=== PATIENT | male | born 1955 | race Caucasian/White ===

== ENCOUNTER 2020-07-23 02:53 | Emergency (ER) | payer MEDICARE, SELFPAY ==
[2020-07-23] VITALS (44 sets, daily range): BP systolic 108–153; BP diastolic 56–109; PULSE 48–86; RESP 9–22; TEMP 36.6; O2SAT 90–100
--- NOTE | ~2020-07-23 | XR_ITS ---
EXAMINATION: XR chest 1V portable INDICATION: Right-sided facial droop TECHNIQUE: Portable AP chest at 0330 hours COMPARISON: 03/31/2018 FINDINGS: Cardiomegaly is noted. Minimal interstitial and airspace opacities are noted. There is no p leural effusion or pneumothorax. There has been interval insertion of a neurostimulator leads which p roject over the lower thoracic spine. IMPRESSION: 1. Diffuse lung disease, consistent with pneumonia and/or pulmonary edema. 2. Cardiomegaly. Reviewed, dictated and finalized at location A. INIST BRAKE
--- NOTE | ~2020-07-23 | CT_ITS ---
EXAMINATION: CT brain wo con INDICATION: Headache COMPARISON: None TECHNIQUE: Standard unenhanced head CT. The dose-length product (DLP) was 605.33 mGy-cm. The mA was a djusted according to patient size. Iterative reconstruction technique was employed. FINDINGS: There are old infarcts in the occipital lobes, right greater than left. There is no intracr anial hemorrhage, acute infarction, or abnormal mass lesion. The ventricles are normal. There is no a bnormal mass effect or midline shift. The mcnulty-white matter differentiation is normal. The basal cist erns are patent. The orbits are normal. The paranasal sinuses, mastoids and calvarium are normal. IMPRESSION: 1. 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 Reviewed, dictated and finalized at location A. O COUNTER MOLDER
--- NOTE | 2020-07-23 02:54 | ECG_ITS ---
Measurements Intervals [place] Rate: 53 P: 8 NC: 130 QRS: 35 QRSD: 86 T: 60 QT: 411 QTc: 387 Interpretive Statements SINUS BRADYCARDIA NONSPECIFIC T-WAVE ABNORMALITY- ANTERIOR LEADS BASELINE ARTIFACT- I, II, III, AVR, AVL, AVF, V1-V3 BORDERLINE ECG Electronically Signed On 07-23-2020 8:50:10 EXTERIOR DESIGNER by Braulio Hnery D.O.
--- NOTE | 2020-07-23 03:09 | ED.NEUROSD ---
HPI - Neuro Symptoms/Deficit General Chief Complaint: Suspected CVA <Mikayla Hahn MD - Last Filed: 07/23/20 21:09> Stated Complaint: cva <Mikayla Hahn MD - Last Filed: 07/23/20 21:09> Time Seen by Provider: 07/23/20 02:56 <Mikayla Hahn MD - Last Filed: 07/23/20 21:09> Source: patient and EMS <Mikayla Hahn MD - Last Filed: 07/23/20 21:09> Mode of arrival: EMS <Mikayla Hahn MD - Last Filed: 07/23/20 21:09> History of Present Illness HPI Narrative: This patient is a 64 year old male with history of Diabetes mellitus, hypertension, SD, s/p stent who presents via EMS for evaluation of right side weakness. PAtient reports he noticed right arm and right leg weakness around 1 am this morning. He is unable to move is right arm and his right leg is weak. He reports some numbness to his right side. He denies history of a stroke in the past. EMs reports patient had recent back surgery. On evaluation of his medical records, he had lumbar fixation procedure on 05/17/2020. During that procedure he suffered a postoperative SD. He developed a surgical wound infection of his back incision. He has Incision and drainage performed by Dr. Belle on 07/01/20 and he had wound vac placed. <Mikayla Hahn MD - Last Filed: 07/23/20 21:09> Related Data Home Medications: Home Medications Medication Instructions Recorded Confirmed calcitriol 0.25 mcg PO DAILY 07/01/20 07/01/20 carvedilol 12.5 mg PO BID 07/01/20 07/01/20 clopidogrel 75 mg PO DAILY 07/01/20 07/01/20 desoximetasone 1 applic TOPICAL BID 07/01/20 07/01/20 diazepam 5 mg PO TID PRN 07/01/20 07/01/20 ergocalciferol (vitamin D2) 1,250 mcg PO WEEKLY 07/01/20 07/01/20 [Vitamin D2] gabapentin 600 mg PO BID 07/01/20 07/01/20 glipizide 20 mg PO DAILY 07/01/20 07/01/20 lisinopril 20 mg PO BID 07/01/20 07/01/20 metformin 1,000 mg PO BID 07/01/20 07/01/20 metoprolol tartrate 50 mg PO DAILY 07/01/20 07/01/20 nitroglycerin 0.4 mg SUBLINGUAL Q5-15M PRN 07/01/20 07/01/20 oxycodone-acetaminophen 1 tablet PO Q6H PRN 07/01/20 07/01/20 quinapril 40 mg PO DAILY 07/01/20 07/01/20 ropinirole 1 mg PO DAILY 07/01/20 07/01/20 simvastatin 80 mg PO DAILY 07/01/20 07/01/20 tizanidine 2 mg PO HS 07/01/20 07/01/20 aspirin [Aspirin Low Dose] 81 mg PO DAILY 07/23/20 insulin degludec [Tresiba U-100 26 unit SUBCUT DAILY 07/23/20 Insulin] morphine 30 mg PO BID 07/23/20 <Mikayla Hahn MD - Last Filed: 07/23/20 21:09> Allergies/Adverse Reactions: Allergies Allergy/AdvReac Type Severity Reaction Status Date / Time No Known Allergies Allergy Verified 07/23/20 03:39 <Mikayla Hahn MD - Last Filed: 07/23/20 21:09> Review of Systems Review of Systems: All systems reviewed & are unremarkable except as noted in HPI and below <Mikayla Hahn MD - Last Filed: 07/23/20 21:09> Constitutional: Constitutional: Denies chills and Denies fever(s) <Mikayla Hahn MD - Last Filed: 07/23/20 21:09> Eyes: Eyes: Reports no additional eye complaints <Mikayla Hahn MD - Last Filed: 07/23/20 21:09> Cardiovascular: Cardiovascular: Denies chest pain <Mikayla Hahn MD - Last Filed: 07/23/20 21:09> Respiratory: Respiratory: Denies cough and Denies dyspnea <Mikayla Hahn MD - Last Filed: 07/23/20 21:09> Gastrointestinal: Gastrointestinal: Denies abdominal pain, Denies nausea and Denies vomiting <Mikayla Hahn MD - Last Filed: 07/23/20 21:09> Neurologic: Denies headache(s) and Reports focal weakness (right arm) <Mikayla Hahn MD - Last Filed: 07/23/20 21:09> [facility] Past Medical History Medical History: Medical History (Updated 07/23/20 @ 10:45 by Delia Lizama MD) CAD (coronary artery disease) Diabetes type 2, controlled Essential (primary) hypertension <Mikayla Hahn MD - Last Filed: 07/23/20 21:09> Surgical History Surgical History: Surgical History (Updated 07/01/20
[2020-07-23 03:23] LABS: Glucose Point of Care 27 (65-105)
[2020-07-23 03:23] LABS: Glucose Point of Care 27 (65-105)
[2020-07-23] MEDS: DEXTROSE 50% 25 GM/50 ML SYRINGE ×2 (03:25→06:34)
--- NOTE | 2020-07-23 03:35 | PC.NURSE ---
After given amp of D50 patient stated he needed to use the bathroom. Upon entering the room patient states and demonstrated he was able to use his right hand and arm and leg. ERP notified.
[2020-07-23 04:15] LABS: Add Urine Microscopic? NO; Appearance Urine Clear (Clear); Bilirubin Urine Negative (Negative); Blood Urine Negative (Negative); Color Urine Yellow (Yellow); Glucose Urine UA Negative (Negative); Ketones Urine Negative (Negative); Leukocyte Esterase Ur Negative LEU/UL (Negative); Nitrate Urine Negative (Negative); Protein Urine Negative (Negative); Specific Grav Ur 1.017 (1.001-1.035); Urobilinogen Urine Negative mg/dL (<2.0)
[2020-07-23 04:16] LABS: Basophils Percent Auto 0.3 % (0.2-1.2); Eosinophils Percent Auto 0.5 % (0-4.4); Hematocrit 26.8 % (42.0-52.0); Hemoglobin 8.6 g/dL (14.0-18.0); Immature Granulocyte Absolute 0.02 K/mm3 (0.00-0.031); Immature Granulocyte Percent A 0.3 % (0-0.5); Lymphocytes Absolute Auto 1.06 K/mm3 (0.9-3.2); Lymphocytes Percent Auto 13.8 % (18.3-44.2); Mean Corpuscular HGB Conc 32.1 g/dl (32-36); Mean Corpuscular Hemoglobin 28.2 pg (26-34); Mean Corpuscular Volume 87.9 fl (80-100); Mean Platelet Volume 10.6 fl (7.4-10.4); Monocytes Absolute Auto 0.3 K/mm3 (0.1-0.6); Monocytes Percent Auto 4.3 % (2.6-8.5); Neutrophils Absolute Auto 6.2 K/mm3 (1.3-6.7); Neutrophils Percent Auto 80.8 % (45.5-73.1); Platelet Count Result 212 k/mm3 (150-375); Red Blood Count 3.05 M/mm3 (4.6-6.20); Red Cell Distribution Width 14.6 % (11.5-14.5); White Blood Count 7.7 K/mm3 (4.5-10.0)
[2020-07-23 04:26] LABS: Partial Thromboplastin Time 29.9 SECONDS (22.3-36.8); Prothrombin Time 13.9 Seconds (11.1-14.7)
[2020-07-23 04:28] LABS: Anion Gap 7 mmol/L (8-16); Blood Urea Nitrogen 27 mg/dL (9-20); Calcium 8.9 mg/dL (8.4-10.2); Carbon Dioxide 28 mmol/L (22-30); Chloride 103 mmol/L (98-107); Estimated Glomerular Filt Rate > 60; Glucose 154 mg/dL (75-110); Potassium 4.7 mmol/L (3.4-5.0); Sodium 138 mmol/L (137-145)
[2020-07-23 04:40] LABS: Troponin I < 0.012 ng/mL (0.000-0.034)
--- NOTE | 2020-07-23 05:03 | PC.NURSE ---
Patient's bedside glucose is 81.
[2020-07-23 05:04] LABS: Glucose Point of Care 81 (65-105)
[2020-07-23 06:22] LABS: Glucose Point of Care 37 (65-105)
--- NOTE | 2020-07-23 06:22 | PC.NURSE ---
Patient's bedside glucose is 37. ERP notified.
--- NOTE | 2020-07-23 07:34 | PC.NURSE ---
DIETARY CONTACTED FOR A BREAKFAST TRAY AT THIS TIME.
[2020-07-23 08:26] LABS: Glucose Point of Care 125 (65-105)
[2020-07-23] MEDS: MORPHINE SULFATE (*CRX) 30 MG TABCR PO (08:34)
[2020-07-23 08:35] LABS: Glucose Point of Care 131 (65-105)
--- NOTE | 2020-07-23 09:15 | PC.NURSE ---
SPOKE WITH PT SON FOR UPDATE ON PT STATUS, NO FURTHER QUESTIONS.
[2020-07-23 09:25] LABS: Glucose Point of Care 78 (65-105)
[2020-07-23 10:19] LABS: Glucose Point of Care 109 (65-105)
== END 2020-07-23 10:57 | disposition home or self-care (01) ==
PROVIDERS: General Practice; Emergency Provider Emergency Medicine; PCP Family Medicine
DX: E11.649 Type 2 diabetes mellitus with hypoglycemia without coma (principal); I10 Essential (primary) hypertension; I25.2 Old myocardial infarction; I25.10 Atherosclerotic heart disease of native coronary artery without angina pectoris; Z95.5 Presence of coronary angioplasty implant and graft; Z79.82 Long term (current) use of aspirin; Z79.4 Long term (current) use of insulin; Z98.1 Arthrodesis status; R00.1 Bradycardia, unspecified; R94.31 Abnormal electrocardiogram [ECG] [EKG]; I51.7 Cardiomegaly; J98.4 Other disorders of lung
CPT/HCPCS: 36415; 70450; 71045; 80048; 81003; 82948; 84484; 85025; 85610; 85730; 93005; 96374; 96376; 99284; A9270

== ENCOUNTER 2020-09-26 07:51 | Outpatient (RCR) | payer MEDICARE, SELFPAY ==
[2020-07-01 11:30] VITALS: BMI 25.8
--- NOTE | 2020-07-01 16:25 | PM.CNGS ---
Assessment and Plan Assessment and plan (1) Superficial incisional surgical site infection: Code(s): T81.41XA - Infection following a procedure, superficial incisional surgical site, initial encounter Status: Acute Assessment and Plan: The patient appears to have an abscess deep to his incision from his recent spinal surgery. There is a small wound opening draining purulence fluid. I discussed with the patient that this will need to be opened up further to allow for evacuation of the purulence fluid and proper wound care. Will proceed with incision and drainage of back abscess in the wound clinic under local anesthetic today. I discussed the procedure, risks, benefits, and alternatives with the patient. He will possibly be a candidate for wound VAC placement once the wound is opened up adequately and drained. He may not need to undergo systemic antibiotic treatment, but will ultimately leave this up to his spine surgeon as there is hardware deep to this area. Will make arrangements for patient to follow up in wound clinic for wound VAC placement once this is approved and will continue to follow patient in wound clinic until he is ultimately able to be released. (2) CAD (coronary artery disease): Qualifiers: Coronary Disease-Associated Artery/Lesion type: [place] artery [place] vs. transplanted heart: [place] heart Associated angina: without angina Qualified Code(s): I25.10 - Atherosclerotic heart disease of [place] coronary artery without angina pectoris Code(s): I25.10 - Atherosclerotic heart disease of [place] coronary artery without angina pectoris Status: Chronic (3) Diabetes type 2, controlled: Qualifiers: Diabetes mellitus detention insulin use: with terminal operations supervisor use Diabetes mellitus complication status: without complication Qualified Code(s): E11.9 - Type 2 diabetes mellitus without complications; Z79.4 - longterm (current) use of insulin Code(s): E11.9 - Type 2 diabetes mellitus without complications Status: Chronic (4) History of lumbar surgery: Code(s): Z98.890 - Other specified postprocedural states Status: Acute History of Present Illness Consult details Consult date: 07/01/20 Reason for consult: wound care Requesting physician: Adolfo,Moo Trujillo MD Narrative: This is a 64-year-old man who I am asked to see in wound clinic for further wound care. The patient has a wound of his lower back from a recent spinal surgery. He underwent lumbar fixation procedure on 05/17/2020. He suffered a postoperative MN and required cardiac catheterization with stent placement. He is currently wearing a life vest until following up with Cardiology. He began developing some wound healing complications to his back incision. He has a wound opening and the upper portion of the scar that has been draining purulence fluid. The wound was too small to pack any gauze in, but continues to stay open and draining. The patient is having tenderness around the area but denies any fevers or chills. He was having some numbness feeling in his legs and just underwent a follow-up MRI with his spine surgeon yesterday. Review of Systems Review of Systems: All systems reviewed & are unremarkable except as noted in HPI and below Constitutional: Constitutional: Denies chills, Denies fever(s), Denies headache(s) and Denies weight loss Eyes: Eyes: Denies change in vision ENT: Denies dizziness, Denies headache(s), Denies neck mass and Denies throat swelling Cardiovascular: Cardiovascular: Denies chest pain, Denies lightheadedness and Denies dyspnea Respiratory: Respiratory: Denies cough, Denies dyspnea and Denies wheezing Gastrointestinal: Gastrointestinal: Denies abdominal pain, Denies change in bowel habits, Denies nausea and Denies vomiting Genitourinary: Genitourinary: Denies hematuria and Denies dysuria Musculoskeletal: Musculoskeletal: Reports as per HPI Integumentary/Jayne
--- NOTE | 2020-07-01 16:44 | PM.PROC ---
Procedure Note - Detailed Date of procedure: 07/01/20 Pre-op diagnosis: Back abscess, superficial surgcial site infection Post-op diagnosis: same Procedure performed: Incision and drainage of superficial surgical site infection to lower back/back abscess Description of procedure: procedure, risks, benefits, and alternatives were discussed with the patient. Patient was placed prone on exam table. His back area was prepped and draped in sterile fashion using Betadine prep. 1% lidocaine with epinephrine was infiltrated locally around the skin on the open back wound. A 4 cm incision was made using a 15 blade scalpel directly over the old scar. The wound was opened up adequately and purulence fluid was expressed. The wound was inspected and no further loculations were noted. The wound was then packed with Aquacel Ag packing. Fluff gauze and tape was then applied. Anesthesia: local ( 1% lidocaine with epinephrine) Surgeon: Nasim Belle DO Nutritional Services Director: Nova Garzon RN Estimated blood loss (mL): 2 Packing: Yes (Aquacel Ag) Complications: No immediate complications Condition: stable Disposition: same day Findings: incision and drainage was made over the back wound. Wound was opened up to allow for sealant fluid to be fully evacuated. Wound dimensions measured 4 cm x 1 cm x 1.5 cm after I&D. Wound still tract about 4 cm inferior in the 6 o'clock location. Wound measurements were taken for plans for wound VAC.
--- NOTE | 2020-08-30 09:48 | P.OP_ITS ---
Procedure Note - Detailed Date of procedure: 08/30/20 Pre-op diagnosis: Back abscess, superficial surgcial site infection Post-op diagnosis: same Procedure performed: Incision and drainage of chronic back abscess and nonhealing wound Description of procedure: * Procedure as well as risks, benefits, and alternatives were discussed with the patient. Written consent was obtained and placed in chart prior to procedure. Patient was placed prone on exam table. His back area was prepped and draped in sterile fashion using Betadine prep. 1% lidocaine with epinephrine was infiltrated locally around the chronic open wound. A 15 blade scalpel was used to make an incision caudally on the open wound along where the chronic abscess was tracking. The incision was opened up approximately 2 in to allow for adequate drainage. There was minimal fibrinous debris that was evacuated from within the abscess cavity. No foreign bodies or other abnormalities were identified. Silver nitrate was applied to aid with hemostasis and for chemical debridement of the chronic granulation. Silver rope was then applied followed by 4 x 4 gauze and tape. Anesthesia: local (1% lidocaine with epinephrine) Surgeon: Nasim Belle DO Estimated blood loss (mL): 2 Packing: Yes (Aquacel Ag rope) Complications: No immediate complications Condition: stable Disposition: same day Findings: * This is a 64-year-old man who presents with a chronic nonhealing wound at a recent lumbar surgery site. He had developed an abscess that was incised and drained previously and wound VAC had been placed. The wound VAC had allowed the wound to close significantly, but there still remained a small 5 mm by 2 cm opening. There was still some tracking caudally and the wound would not completely close, therefore decision was made to repeat I and D over the tracking area. This was performed and some chronic fibrinous material was removed but no foreign body or deep tracking was identified.
== END 2020-09-29 23:59 | disposition home or self-care (01) ==
LOC: ANHWOC 07:51
PROVIDERS: PCP Family Medicine; Visit Provider Surgery
DX: T81.31XD Disruption of external operation (surgical) wound, not elsewhere classified, subsequent encounter (principal)
CPT/HCPCS: 11042; 97605; 99212; 99213; A9270; G0463; J3370

== ENCOUNTER 2020-12-12 07:19 | Outpatient (RCR) | payer OTHER, MEDICARE, SELFPAY ==
[2020-09-30 00:03] VITALS: BMI 25.8
== END 2020-12-19 08:21 | disposition home or self-care (01) ==
LOC: ANHWOC 07:19
PROVIDERS: PCP Family Medicine; Visit Provider Surgery
DX: T81.31XD Disruption of external operation (surgical) wound, not elsewhere classified, subsequent encounter (principal)
CPT/HCPCS: 99212; A9270; G0463

== ENCOUNTER 2020-12-22 08:05 | Outpatient (CLI) | payer MEDICARE, SELFPAY ==
--- NOTE | ~2020-12-22 | XR_ITS ---
EXAMINATION: XR shoulder RT min 2V EXAM DATE: 12/22/2020 08:37 INDICATION: No known recent injury provided at this time. Pain of the right shoulder. TECHNIQUE: The following right shoulder projections obtained: frontal projection with internal rotati on, frontal projection with external rotation, Grashey, and axillary (4+ views). Comparison is made t o prior examination from 06/14/2015. FINDINGS: No evidence of right shoulder rotator cuff calcific tendinosis. There is mild glenohumer al and acromioclavicular joint primary osteoarthritis. There are no acute fractures or dislocations i dentified. There is no subcutaneous gas. The soft tissue is unremarkable. There are no radiopaque foreign bodies. Spine stimulator leads. IMPRESSION: Mild right shoulder osteoarthritis. Reviewed, dictated and finalized at location A.
--- NOTE | ~2020-12-22 | XR_ITS ---
EXAMINATION: XR cervical spine 4-5V EXAM DATE: 12/22/2020 08:37 INDICATION: Cervicalgia. Right shoulder pain. TECHNIQUE: Cervical spine frontal, lateral, lateral swimmers, and open-mouth odontoid projections. C orrelation is made to cervical MRI 2007. FINDINGS: There is solid bone bridging C5-7, with the C5-6 fusion no new compared to 2007 MRI. Mild u pper lumbar disc disease. There is 2 mm anterolisthesis C4 on C5 on the flexion which normalizes on t he extension, with bulky facet arthropathy at that level. Less facet arthropathy at the other levels. Also some uncovertebral joint arthropathy causing some amount of neural foraminal stenosis mostly at C4-5. Lung apices unremarkable. The odontoid process is intact. The lateral masses of C1 line up wi th C2. Paraspinal soft tissue is unremarkable. IMPRESSION: 1. Osseous fusion C5-7. 2. C4-5 with minimal subluxation, advanced facet arthropathy. Reviewed, dictated and finalized at location A.
== END 2020-12-22 08:06 ==
PROVIDERS: PCP Family Medicine; Visit Provider Nurse Practitioner Family
DX: M19.011 Primary osteoarthritis, right shoulder (principal); Z98.1 Arthrodesis status
CPT/HCPCS: 72050; 73030

== ENCOUNTER 2025-05-18 09:59 | Outpatient (CLI) | payer MEDICARE, SELFPAY ==
--- OUTSIDE RECORDS SUMMARY | 2025-01-06 10:15 | XMS_ITS ---
Author Organization [facility] Office Address [address] [facility] [address] [place] [address] Care Team Providers Care Warehouse Shipping Clerk Name Role Phone Temo Adolfo Unavailable [phone] Encounters Encounter Location Date Provider Diagnosis [place] [facility] [address] [facility] [address] [place] [address] 01/06/2025 Adolfo Plascencia Plan Of Treatment Next Appt Details Provider Name:Adolfo Plascencia , 07/19/2025 01:00:00 PM, [address] [facility] [address], [place], [address], Progress Notes * HUY JAMESDOB:1955 (69 yo M)Acc No.[id number]:01/06/2025 Progress Notes Patient: HUY RICE Provider: Claude GRIFFITH MD, Jessica.Tammy.C.P, F.A.S.N. :1955 A ge:69 Y S ex:Male Date:01/06/2025 Address:[address] [place] [address] Subjective: * Chief Complaints: * * Medical History: Objective: * Vitals: Assessment: Plan: * Treatment: * Billing Information: * Visit Code: * Procedure Codes: * Electronic signature of Jeffrey Plascencia MD on 05/18/2025 at 11:20 AM CDT Sign off status: Pending * Provider: Claude GRIFFITH MD, Jessica.Tammy.C.P, F.A.S.N. Date: 01/06/2025 Generated for Printing/Faxing/eTransmitting on: 05/18/2025 11:20 AM CDT
--- OUTSIDE RECORDS SUMMARY | 2025-01-22 10:30 | XMS_ITS ---
Author Organization [facility] Address [address] [facility] [address] [place] [address] Care Team Providers Care Executive Wellness Programs Director Name Role Phone Adolfo Plascencia Unavailable [phone] Results Component Value Reference Range Notes ALBUMIN, RANDOM URINE W/CREA TININE (7831) (Not yet reviewed by provider) Interpretation: Performing Lab:ELLE Pockets [employer] Low-Dtwfiy48553 Jas Herring, PkloezRQ[address] Paulina Cramer MD Notes/Report: 0; 0; 0; 0; 0; 0; 0; 0; 0; 0; 0; 0; 0; 0 CREATININE, RANDOM URINE 54 20-320 mg/dL ALBUMIN, URINE 1.8 See Note: mg/dL Reference Range: Reference Range Not established ALBUMIN/CREATININE RATIO, RANDOM URINE 33 <30 mg/g creat The ADA defines abnormalities in albumin excretion as follows: Albuminuria Category Result (mg/g creatinine) Normal to Mildly increased <30 Moderately increased 30-299 Severely increased > OR = 300 The ADA recommends that at least two of three specimens collected within a 3-6 month period be abnormal before considering a patient to be within a diagnostic category. SODIUM WITH CREATININE, RAND OM URINE (5214) (Not yet reviewed by provider) Interpretation: Performing Lab:Puneet ALMEIDA-Yunnsq73061 Jas Herring, GmepauVK[address] Paulina Cramer MD Notes/Report: 0; 0; 0; 0; 0; 0; 0; 0; 0; 0; 0; 0; 0; 0 SODIUM/CREAT RATIO 115 20-233 mmol/g creat SODIUM, RANDOM URINE 62 28-272 mmol/L CREATININE, RANDOM URINE 54 20-320 mg/dL PTH, INTACT AND CALCIUM (883 7) (Not yet reviewed by provider) Interpretation: Performing Lab:ELLE Reply.io-Orgxmv64181 Jas Herring YlezynHN[address]999[address] Paulina Cramer MD Notes/Report: 0; 0; 0; 0; 0; 0; 0; 0; 0; 0; 0; 0; 0; 0 PARATHYROID HORMONE, INTACT 23 16-77 pg/mL Interpretive Guide Intact PTH Calcium ------- Normal Parathyroid Normal Normal Hypoparathyroidism Low or Low Normal Low Hyperparathyroidism Primary Normal or High High Secondary High Normal or Low Tertiary High High Non-Parathyroid Hypercalcemia Low or Low Normal High CALCIUM 10.0 8.6-10.3 mg/dL CHLORIDE WITH CREATININE, RA [facility] URINE (0514) (Not yet reviewed by provider) Interpretation: Performing Lab:Puneet ALMEIDA-Hcbesk16933 Jas Herring XnbxvxRC27[address] Paulina Cramer MD Notes/Report: 0; 0; 0; 0; 0; 0; 0; 0; 0; 0; 0; 0; 0; 0 CHLORIDE/CREAT RATIO 98 23-275 mmol/g creat CHLORIDE, RANDOM URINE 53 32-290 mmol/L CREATININE, RANDOM URINE 54 20-320 mg/dL COMPREHENSIVE METABOLIC PANE L (80282) (Not yet reviewed by provider) Interpretation: Performing Lab:ELLE Pockets [facility] Low-Fxhras77889 Jas Herring TijlugKR83723-[address] Paulina Cramer MD Notes/Report: 0; 0; 0; 0; 0; 0; 0; 0; 0; 0; 0; 0; 0; 0 GLUCOSE 143 65-99 mg/dL Fasting reference interval For someone without known diabetes, a glucose value >125 mg/dL indicates that they may have diabetes and this should be confirmed with a follow-up test. UREA NITROGEN (BUN) 42 7-25 mg/dL CREATININE 1.91 0.70-1.35 mg/dL EGFR 37 > OR = 60 mL/min/1.73m2 BUN/CREATININE RATIO 22 6-22 (calc) SODIUM 140 135-146 mmol/L POTASSIUM 4.4 3.5-5.3 mmol/L CHLORIDE 100 98-110 mmol/L CARBON DIOXIDE 32 20-32 mmol/L CALCIUM 10.0 8.6-10.3 mg/dL PROTEIN, TOTAL 6.9 6.1-8.1 g/dL ALBUMIN 4.5 3.6-5.1 g/dL GLOBULIN 2.4 1.9-3.7 g/dL (calc) ALBUMIN/GLOBULIN RATIO 1.9 1.0-2.5 (calc) BILIRUBIN, TOTAL 0.4 0.2-1.2 mg/dL ALKALINE PHOSPHATASE 89 35-144 U/L AST 22 10-35 U/L ALT 21 9-46 U/L URIC ACID (905) (Not yet rev iewed by provider) Interpretation: Performing Lab:Puneet HANNAHarry [facility]. [facility] HospitalJnqoe72045 Administration Alannah Serrano MzkurdvMR[address] Paulina Cramer Notes/Report: 0; 0; 0; 0; 0; 0; 0; 0; 0; 0; 0; 0; 0; 0 URIC ACID 4.7 4.0-8.0 mg/dL Therapeutic ta rget for gout patients: <6.0 mg/dL POTASSIUM W/O CREATININE, RA NDOM URINE (53746) (Not yet reviewed by provider) Interpretation: Performing Lab:Puneet ALMEIDA-Hsmdib06069 Tahmina GutierrezaKS[address] Paulina Cramer MD Notes/Report: 0; 0; 0; 0; 0; 0; 0; 0; 0; 0; 0; 0; 0; 0 POTASSIUM, RANDOM URINE 48 12-129 mmol/L PROTEIN, TOTAL W/CREAT, RAND OM URINE (3745) (Not yet reviewed by provider) Interpretation: Performing Lab:Puneet ALMEIDA-Lgxaix48964 Tahmina GutierrezaKS[address] Paulina Cramer MD Notes/Report: 0; 0; 0; 0; 0; 0; 0; 0; 0; 0; 0; 0; 0; 0 CREATININE, RANDOM URINE 54 20-320 mg/dL PROTEIN/CREATININE RATIO 296 25-148 mg/g crea t PROTEIN/CREATININE RATIO 0.296 0.025-0 .148 mg/mg creat PROTEIN, TOTAL, RANDOM UR 16 5-25 mg/dL CBC (INCLUDES DIFF/PLT) (639 9) (Not yet reviewed by provider) Interpretation: Performing Lab:CYNDI Reply.ioHarry S. Truman [facility] Veterans' HospitalLxrwb50420 Administration Alannah Serrano FqtbmzkMD[address] Paulina Cramer Notes/Report: 0; 0; 0; 0; 0; 0; 0; 0; 0; 0; 0; 0; 0; 0 WHITE BLOOD CELL COUNT 9.0 3.8-10.8 Thousand/ uL RED BLOOD CELL COUNT 4.37 4.20-5.80 Million/uL HEMOGLOBIN 13.1 13.2-17.1 g/dL HEMATOCRIT 40.6 38.5-50.0 % MCV 92.9 80.0-100.0 fL MCH 30.0 27.0-33.0 pg MCHC 32.3 32.0-36.0 g/dL For adults, a slight decrease in the calculated MCHC value (in the range of 30 to 32 g/dL) is most likely not clinically significant; however, it should be interpreted with caution in correlation with other red cell parameters and the patient's clinical condition. RDW 13.6 11.0-15.0 % PLATELET COUNT 187 140-400 Thousand/uL MPV 11.8 7.5-12.5 fL ABSOLUTE NEUTROPHILS 6768 9761-3853 cells/uL ABSOLUTE LYMPHOCYTES 7841 781-5180 cells/uL ABSOLUTE MONOCYTES 567 200-950 cells/uL ABSOLUTE EOSINOPHILS 333 15-500 cells/uL ABSOLUTE BASOPHILS 90 0-200 cells/uL NEUTROPHILS 75.2 LYMPHOCYTES 13.8 MONOCYTES 6.3 EOSINOPHILS 3.7 BASOPHILS 1.0 URINALYSIS, COMPLETE W/REFLE X TO CULTURE (3020) (Not yet reviewed by provider) Interpretation: Performing Lab:ELLE Reply.io-Rqcdmi43048 Jas [facility]vajalGe[facility] Behavioral HospitalSpqhsnGU[address] Paulina Cramer MD Notes/Report: 0; 0; 0; 0; 0; 0; 0; 0; 0; 0; 0; 0; 0; 0 COLOR YELLOW YELLOW APPEARANCE CLEAR CLEAR SPECIFIC GRAVITY 1.017 1.001-1.035 PH 7.5 5.0-8.0 GLUCOSE 3+ NEGATIVE BILIRUBIN NEGATIVE NEGATIVE KETONES NEGATIVE NEGATIVE OCCULT BLOOD NEGATIVE NEGATIVE PROTEIN NEGATIVE NEGATIVE NITRITE NEGATIVE NEGATIVE LEUKOCYTE ESTERASE NEGATIVE NEGATIVE WBC NONE SEEN < OR = 5 /HPF RBC NONE SEEN < OR = 2 /HPF SQUAMOUS EPITHELIAL CELLS NONE SEEN < OR = 5 /HPF BACTERIA NONE SEEN NONE SEEN /HPF HYALINE CAST NONE SEEN NONE SEEN /LPF NOTE RBC, bacteria, casts, and other formed elements. Only those elements seen were reported. This urine was analyzed for the presence of WBC, REFLEXIVE URINE CULTURE NO C ULTURE INDICATED SED RATE BY MODIFIED EDU ARELLNAO (809) (Not yet reviewed by provider) Interpretation: Performing Lab:Puneet [place]NALau[place] [address] Administration Alannah Serrano [place] [address] Paulina Cramer Notes/Report: 0; 0; 0; 0; 0; 0; 0; 0; 0; 0; 0; 0; 0; 0 SED RATE BY MODIFIED PRISCILLA 8 < OR = 20 mm/h OSMOLALITY (U) (678) (Not ye t reviewed by provider) Interpretation: Performing Lab:Puneet ALMEIDAOzrpak83801 Nav GutierrezJkywfuIL[address] Paulina Cramer MD Notes/Report: 0; 0; 0; 0; 0; 0; 0; 0; 0; 0; 0; 0; 0; 0 OSMOLALITY (U) 487 50-1200 mOsm/kg TSH (899) (Not yet reviewed by provider) Interpretation: Performing Lab:Puneet [place] [address] Administration Alannah Serrano [place] [address] NichellePaige Cramer Notes/Report: 0; 0; 0; 0; 0; 0; 0; 0; 0; 0; 0; 0; 0; 0 TSH 2.26 0.40-4.50 mIU/L VITAMIN D,25-OH,TOTAL,IA (17 306) (Not yet reviewed by provider) Interpretation: Performing Lab:Puneet ALMEIDAIqrgxs56963 Jas Herring GdgozaBB84566[address] Paulina Cramer MD Notes/Report: 0; 0; 0; 0; 0; 0; 0; 0; 0; 0; 0; 0; 0; 0 VITAMIN D,25-OH,TOTAL,IA 89 30-100 ng/mL Vitamin D Status 25-OH Vitamin D: Deficiency: <20 ng/mL Insufficiency: 20 - 29 ng/mL Optimal: > or = 30 ng/mL For 25-OH Vitamin D testing on patients on D2-supplementation and patients for whom quantitation of D2 and D3 fractions is required, the QuestAssureD(TM) 25-OH VIT D, (D2,D3), LC/MS/MS is recommended: order code 20917 (patients >2yrs). See Note 1 Note 1 For additional information, please refer to [email or web address]/faq/[email or web address] (This link is being provided for informational/ educational purposes only.) Problems Problem Type SNOMED Code ICD Code Onset Dates Problem Status W/U Status Risk Notes Problem Elevated PSA (983057282) Elevated prostate specific antigen (PSA) (R97.20) Active confirmed Problem Coronary artery disease (47487133) CAD (coronary artery disease) (I25.10) Active confirmed Encounters Encounter Location Date Provider Diagnosis [facility] [place] [facility] [address] [place] [address] 01/22/2025 Adolfo Plascencia Chronic kidney disea se, stage 3b N18.32 ; Essential hypertension I10 ; Type 2 diabetes mellitus with diabetic chronic kidney disease E11.22 ; Anemia, unspecified D64.9 ; Renal osteodystrophy N25.0 ; Secondary hyperparathyroidism, not elsewhere classified E21.1 ; Proteinuria, unspecified R80.9 ; Hyperuricemia without signs of inflammatory arthritis and tophaceous disease E79.0 ; Elevated prostate specific antigen (PSA) R97.20 and CAD (coronary artery disease) I25.10 Assessments Encounter Date Diagnosis (ICD Code) Assessment Notes Treatment Notes Treatment Clinical Notes Section Notes 01/22/2025 Chronic kidney disease, stage 3b (ICD-10 - N18.32) 01/22/2025 Essential hypertension (ICD-10 - I10) 01/22/2025 Type 2 diabetes mellitus with diabetic chronic kidney disease (ICD-10 - E11.22) 01/22/2025 Anemia, unspecified (ICD-10 - D64.9) 01/22/2025 Renal osteodystrophy (ICD-10 - N25.0) 01/22/2025 Secondary hyperparathyroidism , not elsewhere classified (ICD-10 - E21.1) 01/22/2025 Proteinuria, unspecified (ICD-10 - R80.9) 01/22/2025 Hyperuricemia without signs of inflammatory arthritis and tophaceous disease (ICD-10 - E79.0) 01/22/2025 Elevated prostate specific antigen (PSA) (ICD-10 - R97.20) 01/22/2025 CAD (coronary artery disease) (ICD-10 - I25.10) Plan Of Treatment Pending Test Test Name Order Date ALBUMIN, RANDOM URINE W/CREATININE (6517 ) 01/22/2025 SODIUM WITH CREATININE, RANDOM URINE (85 14) 01/22/2025 PTH, INTACT AND CALCIUM (8837) CHLORIDE WITH CREATININE, RANDOM URINE ( 1645) 01/22/2025 COMPREHENSIVE METABOLIC PANEL (39459) URIC ACID (905) 01/22/2025 POTASSIUM W/O CREATININE, RANDOM URINE ( 50953) 01/22/2025 PROTEIN, TOTAL W/CREAT, RANDOM URINE (17 15) 01/22/2025 CBC (INCLUDES DIFF/PLT) (6399) URINALYSIS, COMPLETE W/REFLEX TO CULTURE (3020) 01/22/2025 SED RATE BY MODIFIED WESTERGREN (809) OSMOLALITY (U) (678) 01/22/2025 TSH (899) 01/22/2025 VITAMIN D,25-OH,TOTAL,IA (36243) 025 VITAMIN D, 1,25 DIHYDROXY (20245M1) 01/07 Next Appt Details Provider Name:Adolfo Plascencia , 07/19/2025 01:00:00 PM, [address], [address], Progress Notes * HUY JAMESDOB:1955 (69 yo M)Acc No.[id number]:01/22/2025 Patient: HUY RICE Provider: Claude GRIFFITH MD, F.A.C.P, F.A.S.N. :1955 A ge:69 Y S ex:Male Date:01/22/2025 Address:[address] [place] [address] Subjective: * Chief Complaints: Objective: Assessment: * Assessment: 1. C hronic kidney disease, stage 3b - N18.32 (Primary) 2 . E ssential hypertension - I10 3 . T ype 2 diabetes mellitus with diabetic chronic kidney disease - E11.22 4 . A nemia, unspecified - D64.9 5 . R enal osteodystrophy - N25.0 6 . S econdary hyperparathyroidism, not elsewhere classified - E21.1 7 . P roteinuria, unspecified - R80.9 8 . H yperuricemia without signs of inflammatory arthritis and tophaceous disease - E79.0 9 . E levated prostate specific antigen (PSA) - R97.20 1 0. C AD (coronary artery disease) - I25.10 Plan: * Billing Information: * Visit Code: 10466 Office Visit, Est Pt., Level 5. * Procedure Codes: * Electronic signature of Jeffrey Plascencia MD on 05/18/2025 at 11:20 AM CDT Sign off status: Pending * Provider: Claude GRIFFITH MD, F.A.C.P, F.A.S.N. Date: 0 01/22/2025 Generated for Printing/Faxing/eTransmitting on: 0 05/18/2025 11:20 AM CDT
--- OUTSIDE RECORDS SUMMARY | 2025-03-19 09:30 | XMS_ITS ---
Author Organization [facility] Address [address] [facility] [address] [facility] [address] [place] [address] Care Team Providers Care Mandarin Teacher Name Role Phone Temo Adolfo Unavailable [phone] Encounters Encounter Location Date Provider Diagnosis [place] [facility] [address] [facility] [address] [place] [address] 03/19/2025 Adolfo Plascencia Plan Of Treatment Next Appt Details Provider Name:Adolfo Plascencia , 07/19/2025 01:00:00 PM, 2043 [facility] [address], [place], [address], Progress Notes * HUY JAMESDOB:1955 (69 yo M)Acc No.[id number]:03/19/2025 Progress Notes Patient: HUY RICE Provider: Claude GRIFFITH MD, Jessica.Tammy.C.P, F.A.S.N. :1955 A ge:69 Y S ex:Male Date:03/19/2025 Address:[address] [place] [address] Subjective: * Chief Complaints: * * Medical History: Objective: * Vitals: Assessment: Plan: * Treatment: * Billing Information: * Visit Code: * Procedure Codes: * Electronic signature of Jeffrey Plascencia MD on 05/18/2025 at 11:19 AM CDT Sign off status: Pending * Provider: Claude GRIFFITH MD, Jessica.Tammy.C.P, F.A.S.N. Date: 03/19/2025 Generated for Printing/Faxing/eTransmitting on: 05/18/2025 11:19 AM CDT
--- OUTSIDE RECORDS SUMMARY | 2025-04-02 14:00 | XMS_ITS ---
Author Organization [facility] Address [address] [place] [address] Care Team Providers Care Kiss Mixer Name Role Phone Adolfo Plascencia Unavailable [phone] Encounters Encounter Location Date Provider Diagnosis [facility] [address] [place] [address] 04/02/2025 Claude Plascencia Plan Of Treatment Next Appt Details Provider Name:Adolfo Plascencia , 07/19/2025 01:00:00 PM, [address] [facility] [address], [address], Progress Notes * HUY JAMESDOB:1955 (69 yo M)Acc No.[id number]:04/02/2025 Progress Notes Patient: HUY RICE Provider: Claude GRIFFITH MD, Jessica.Tammy.C.P, F.A.S.N. :1955 A ge:69 Y S ex:Male Date:04/02/2025 Address:[address] [place], [place] [id number] Subjective: * Chief Complaints: * * Medical History: Objective: * Vitals: Assessment: Plan: * Treatment: * Billing Information: * Visit Code: * Procedure Codes: * Electronic signature of Jeffrey Plascencia MD on 05/18/2025 at 11:20 AM CDT Sign off status: Pending * Provider: Claude GRIFFITH MD, Jessica.Tammy.C.P, F.A.S.N. Date: 0 04/02/2025 Generated for Printing/Faxing/eTransmitting on: 0 05/18/2025 11:20 AM CDT
--- OUTSIDE RECORDS SUMMARY | 2025-04-09 10:30 | XMS_ITS ---
Author Organization [facility] Address [address] [place] [address] Care Team Providers Care Pond Tender Name Role Phone Adolfo Plascencia Unavailable [phone] Encounters Encounter Location Date Provider Diagnosis [place] [facility] [address] [facility] 15 [place] [address] 04/09/2025 Adolfo Plascencia Chronic kidney disea se, stage [...] Treatment Notes Treatment Clinical Notes Section Notes 04/09/2025 Chronic kidney disease, stage 3b (ICD-10 - N18.32) 04/09/2025 Essential hypertension (ICD-10 - I10) 04/09/2025 Type 2 diabetes mellitus with diabetic chronic kidney disease (ICD-10 - E11.22) 04/09/2025 Anemia, unspecified (ICD-10 - D64.9) 04/09/2025 Renal osteodystrophy (ICD-10 - N25.0) 04/09/2025 Secondary hyperparathyroidism , not elsewhere classified (ICD-10 - E21.1) 04/09/2025 Proteinuria, unspecified (ICD-10 - R80.9) 04/09/2025 Hyperuricemia without signs of inflammatory arthritis and tophaceous disease (ICD-10 - E79.0) 04/09/2025 Elevated prostate specific antigen (PSA) (ICD-10 - R97.20) 04/09/2025 CAD (coronary artery disease) (ICD-10 - I25.10) Plan Of Treatment Next Appt Details Provider Name:Adolfo Plascencia , 07/19/2025 01:00:00 PM, [address] [facility], [address], [place], [address], Progress Notes * HUY JAMESDOB:1955 (69 yo M)Acc No.[id number]:04/09/2025 Progress Notes Patient: HUY RICE Provider: Claude GRIFFITH MD, F.Tammy.C.P, F.A.S.N. :1955 A ge:69 Y S ex:Male Date:04/09/2025 Address:[address] [place] [address] Subjective: * Chief Complaints: Objective: Assessment: * [...] Plan: * Billing Information: * Visit Code: 10046 Office Visit, Est Pt., Level 4. * Procedure Codes: * Electronic signature of Jeffrey Plascencia MD on 05/18/2025 at 11:19 AM CDT Sign off status: Pending * Provider: Claude GRIFFITH MD, Jessica.Tammy.C.P, F.A.S.N. Date: 04/09/2025 Generated for Printing/Faxing/eTransmitting on: 0 05/18/2025 11:19 AM CDT
--- NOTE | 2025-05-18 10:40 | NEURO_ITS ---
Impression: # Complains of numbness of hands. # Mild Carpal Tunnel Syndrome bilaterally. 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 # Normal Needle/ EMG exam. Nerve Conduction Studies ?Stim Site NR Peak (ms) P-T Amp (?V) Site1 Site2 Delta-P (ms) Dist (cm) Henrik (m/s) Left Median Anti Sensory (2-3nd Digit) Wrist ? 3.7 11.8 Wrist 2-3nd Digit 3.7 14.0 38 Wrist ? 3.9 11.5 Wrist 2-3nd Digit 3.7 14.0 38 Right Median Anti Sensory (2-3nd Digit) Wrist ? 4.0 9.7 Wrist 2-3nd Digit 4.0 14.0 35 Wrist ? 4.3 10.9 Wrist 2-3nd Digit 4.0 14.0 35 Left Radial Anti Sensory (Base 1st Digit) Wrist ? 2.3 7.6 Wrist Base 1st Digit 2.3 0.0 Right Radial Anti Sensory (Base 1st Digit) Wrist ? 2.3 12.3 Wrist Base 1st Digit 2.3 0.0 Left Ulnar Anti Sensory (5th Digit) Wrist ? 3.0 11.7 Wrist 5th Digit 3.0 14.0 47 Right Ulnar Anti Sensory (5th Digit) Wrist ? 3.0 11.7 Wrist 5th Digit 3.0 14.0 47 ?Stim Site NR Onset (ms) O-P Amp (mV) Site1 Site2 Delta-0 (ms) Dist (cm) Henrik (m/s) Left Median Motor (Abd Poll Brev) Wrist ? 4.3 1.8 Elbow Wrist 5.3 27.0 51 Elbow ? 9.6 2.5 Right Median Motor (Abd Poll Brev) Wrist ? 4.2 1.7 Elbow Wrist 5.3 29.0 55 Elbow ? 9.5 3.5 Left Ulnar Motor (Abd Dig Minimi) Wrist ? 3.1 9.5 A Elbow Wrist 5.9 30.0 51 A Elbow ? 9.0 4.7 B Elbow Wrist 3.9 21.0 54 B Elbow ? 7.0 1.7 Right Ulnar Motor (Abd Dig Minimi) Wrist ? 3.1 7.8 A Elbow Wrist 6.0 30.0 50 A Elbow ? 9.1 5.1 B Elbow Wrist 4.0 21.0 53 B Elbow ? 7.1 2.7 F Wave Studies ?NR F-Lat (ms) L-R F-Lat (ms) Left Median (Mrkrs) (Abd Poll Brev) ? 30.08 1.59 Right Median (Mrkrs) (Abd Poll Brev) ? 31.67 1.59 Left Ulnar (Mrkrs) (Abd Dig Min) ? 29.77 3.83 Right Ulnar (Mrkrs) (Abd Dig Min) ? 25.94 3.83 Electromyography ?Side Muscle Nerve Root Ins Act Fibs Amp Dur Recrt Comment Right 1stDorInt Ulnar C8-T1 Nml Nml Nml Nml Nml Right Ext Indicis Radial (Post Int) C7-8 Nml Nml Nml Nml Nml Right Ext Digitorum Radial (Post Int) C7-8 Nml Nml Nml Nml Nml Right BrachioRad Radial C5-6 Nml Nml Nml Nml Nml Right PronatorTeres Median C6-7 Nml Nml Nml Nml Nml Right Abd Poll Brev Median C8-T1 Nml Nml Nml Nml Nml Right ABD Dig Min Ulnar C8-T1 Nml Nml Nml Nml Nml Right FlexPolLong Median (Ant Int) C7-8 Nml Nml Nml Nml Nml Right Abd Poll Long Radial (Post Int) C7-8 Nml Nml Nml Nml Nml Left 1stDorInt Ulnar C8-T1 Nml Nml Nml Nml Nml Left Ext Indicis Radial (Post Int) C7-8 Nml Nml Nml Nml Nml Left Ext Digitorum Radial (Post Int) C7-8 Nml Nml Nml Nml Nml Left BrachioRad Radial C5-6 Nml Nml Nml Nml Nml Left PronatorTeres Median C6-7 Nml Nml Nml Nml Nml Left Abd Poll Brev Median C8-T1 Nml Nml Nml Nml Nml Left ABD Dig Min Ulnar C8-T1 Nml Nml Nml Nml Nml Left FlexPolLong Median (Ant Int) C7-8 Nml Nml Nml Nml Nml Left Abd Poll Long Radial (Post Int) C7-8 Nml Nml Nml Nml Nml
--- OUTSIDE RECORDS SUMMARY | 2025-05-18 11:20 | XMS_ITS | Clinical Summary ---
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 mg/dL Ages > or = 20 years Desirable: <150 mg/dL Borderline high: 150-199 mg/dL High: 200-499 mg/dL Very high: >or= 499 mg/dL Literature References: 1. Expert Panel on Integrated Guidelines for Cardiovascular Health and Risk Reduction in Children and Adolescents. Pediatrics 2011;128:S213 2. NCEP Expert Panel. Circulation 2004;110:227 Current Interpretive Data was last revised on 2018. HDL 45 >=40 mg/dL THOMAS DENNY Comment: Interpretive Data Ages < or = 19 years Acceptable: >45 mg/dL Borderline low: 40-45 mg/dL Low: <40 mg/dL Ages > or = 20 years Desirable: >or= 60 mg/dL Low: <40 mg/dL Literature References: 1. Expert Panel on Integrated Guidelines for Cardiovascular Health and Risk Reduction in Children and Adolescents. Pediatrics 2011;128:S213 2. NCEP Expert Panel. Circulation 2004;110:227 Current Interpretive Data was last revised on 2018. LDL, calculated 54 <=129 mg/dL THOMAS DENNY Comment: Interpretive Data Ages < or = 19 years Acceptable: <110 mg/dL Borderline high: 110-129 mg/dL High: >or= 130 mg/dL Ages > or = 20 years Optimal: <100 mg/dL Near optimal: 100-129 mg/dL Borderline high: 130-159 mg/dL High: >160 mg/dL Calculated using the Abdiel LDL-C estimating equation. This equation was implemented on 2024. Prior to this date LDL-C was estimated using the Friedewald equation. Literature References: 1. Expert Panel on Integrated Guidelines for Cardiovascular Health and Risk Reduction in Children and Adolescents. Pediatrics 2011;128:S213 2. NCEP Expert Panel. Circulation 2004;110:227 3. Abdiel Redman et al. SUZIE Cardiol. 2020 January 07;5(5):540-548. doi: [email or web address] Current Interpretive Data was last revised on 2024. Non-HDL Cholesterol 74 mg/dL THOMAS Comment: Interpretive Data Ages < or = 19 years Acceptable: <120 mg/dL Borderline high: 120-144 mg/dL High: >145 mg/dL Ages > or = 20 years When triglycerides are >200 mg/dL, Non-HDL cholesterol is a secondary target of therapy with treatment goals that are 30 mg/dL greater than the LDL cholesterol target. Literature References: 1. Expert Panel on Integrated Guidelines for Cardiovascular Health and Risk Reduction in Children and Adolescents. Pediatrics 2011;128:S213 2. NCEP Expert Panel. Circulation 2004;110:227 Current Interpretive Data was last revised on 2018. Chol/HDL ratio 3 [facility] Blood 03/16/2025 9:54 AM CDT 03/16/2025 7:08 PM CDT us Mattie Saenz NP LAB BLOOD ORDERABLES Mary Alice l Result THOMAS [id number] Department [place] [address] * (ABNORMAL) Comprehensive metabolic panel (03/16/2025 9:54 AM CDT) Sodium 141 135 - 145 mmol/L Potassium, pl 4.6 3.3 - 4.9 mmol/L [facility] Chloride 102 97 - 110 mmol/L [facility] CO2 28 22 - 32 mmol/L [facility] Anion gap 11 2 - 15 mmol/L [facility] BUN 34(H) 6 - 25 mg/dL [facility] Creatinine 1.85(H) 0.80 - 1.30 mg/dL [facility] Glucose 185 70 - 199 mg/dL [facility] Comment: Interpretive Data Fasting glucose >/= 126 mg/dl is diagnostic for diabetes. Fasting is defined as no caloric intake for at least 8 hours. Fasting glucose between 100 mg/dl to 125 mg/dl is diagnostic of prediabetes. In a patient with classic symptoms of hyperglycemia or hyperglycemic crisis, a random glucose >/= 200 mg/dl is diagnostic for diabetes. In the absence of unequivocal hyperglycemia, results should be confirmed by repeat testing. The classification and Diagnosis of Diabetes Diabetes Care 2021; 46: S19-S40. Current interpretive data was last revised 2022. Calcium 10.1 8.5 - 10.3 mg/dL [facility] Bilirubin, total 0.3 0.1 - 1.2 mg/dL [facility] Protein, pl 7.2 6.5 - 8.5 g/dL [facility] Albumin 4.4 3.5 - 5.0 g/dL [facility] Alk phos 102 40 - 130 Units/L [facility] ALT 15 7 - 55 Units/L [facility] AST 24 10 - 50 Units/L [facility] Blood 03/16/2025 9:54 AM CDT 03/16/2025 7:08 PM CDT us Mattie Saenz NP LAB BLOOD ORDERABLES Mary Alice l Result THOMAS [id number] Department [place] [address] * (ABNORMAL) POCT hemoglobin A1c (03/16/2025 9:09 AM CDT) Hemoglobin A1C, POC 6.9(A) 4.0 - 5.6 % Blood 03/16/2025 9:09 AM CDT us Mattie Saenz NP POINT OF CARE TEST ORDERA BLES Final Result * (ABNORMAL) POCT glucose (03/16/2025 9:09 AM CDT) Glucose Blood, POC 262 Normal Fasting 70 - 100, Random <200 mg/dL Blood 03/16/2025 9:09 AM CDT Mattie Saenz [employer] PRACTITIONER POINT OF CARE TEST ORDERA BLES Final Result * (ABNORMAL) PSA, total Blood (09/27/2022 2:02 PM RESISTANCE WELDER) SCRIBED PSA, Total 4.31(A) 0.00 - 4.00 [facility] Blood 09/27/2022 2:02 PM RESISTANCE WELDER Historical Provider LAB BLOOD ORDERABLES Edit ed Result - Final [facility] [address] [phone] from Last 3 Months or Most Recently Relevant to Health Maintenance Insurance [facility] MDCR HMO REF [facility] MEDICARE ADVANTAGE [employer] MEDICARE ADVANTAGE Care Teams Data Processor Relationship Specialty Start Date End Date Sara Rosales NP [address] [facility] [address] [place] [address] PCP - General Internal Medicine 03/16/25 [place] [address] [facility] [address] [place] [address] Nurse Practitioner Endocrinology Diabetes & Metabolism 03/25/25 Pardeep Ramos MD [address] [place] [address] Consulting Physician Cardiology 03/25/25 Jean Weiner MD [address] [place] [address] Consulting Physician Urology 03/25/25 [place] [id number] [address] Consulting Physician Nephrology 03/25/25 Brenda Henson Nurse Practitioner Pain Management 03/25/25
--- OUTSIDE RECORDS SUMMARY | 2025-05-18 11:20 | XMS_ITS | Patient Health Record ---
Author Organization [facility] Address [address] [place] [address] Care Team Providers Care [employer] Mechanic Name Role Phone Adolfo Plascencia Unavailable [phone] Results Component Value Reference Range Notes ALBUMIN, RANDOM URINE W/CREA TININE (7745) (Not yet reviewed by provider) Interpretation: Performing Lab:ELLE appssavvy Low-Azcgsv70916 Nav GutierrezDxunvlVG[address] Paulina Cramer MD Notes/Report: 0; 0; 0; 0; 0; 0; 0; 0; 0 CREATININE, RANDOM URINE 47 20-320 mg/dL ALBUMIN, URINE 2.1 See Note: mg/dL Reference Range: Reference Range Not established ALBUMIN/CREATININE RATIO, RANDOM URINE 45 <30 mg/g creat The ADA defines abnormalities in albumin excretion as follows: Albuminuria Category Result (mg/g creatinine) Normal to Mildly increased <30 Moderately increased 30-299 Severely increased > OR = 300 The ADA recommends that at least two of three specimens collected within a 3-6 month period be abnormal before considering a patient to be within a diagnostic category. PTH, INTACT AND CALCIUM (883 7) (Not yet reviewed by provider) Interpretation: Performing Lab:ELLE appssavvy Low-Uorakn87961 Jas Herring, WztktpFB[address] Paulina Cramer MD Notes/Report: 0; 0; 0; 0; 0; 0; 0; 0; 0 PARATHYROID HORMONE, INTACT 16 16-77 pg/mL Interpretive Guide Intact PTH Calcium ------- Normal Parathyroid Normal Normal Hypoparathyroidism Low or Low Normal Low Hyperparathyroidism Primary Normal or High High Secondary High Normal or Low Tertiary High High Non-Parathyroid Hypercalcemia Low or Low Normal High CALCIUM 10.0 8.6-10.3 mg/dL COMPREHENSIVE METABOLIC PANE L (49490) (Not yet reviewed by provider) Interpretation: Performing Lab:ELLE [employer]-Aiskhj13198 Jas Herring, DgaaclOY[address] Paulina Cramer MD Notes/Report: 0; 0; 0; 0; 0; 0; 0; 0; 0 GLUCOSE 166 65-99 mg/dL Fasting reference interval For someone without known diabetes, a glucose value >125 mg/dL indicates that they may have diabetes and this should be confirmed with a follow-up test. UREA NITROGEN (BUN) 31 7-25 mg/dL CREATININE 1.92 0.70-1.35 mg/dL EGFR 37 > OR = 60 mL/min/1.73m2 BUN/CREATININE RATIO 16 6-22 (calc) SODIUM 140 135-146 mmol/L POTASSIUM 4.3 3.5-5.3 mmol/L CHLORIDE 99 98-110 mmol/L CARBON DIOXIDE 29 20-32 mmol/L CALCIUM 10.0 8.6-10.3 mg/dL PROTEIN, TOTAL 7.0 6.1-8.1 g/dL ALBUMIN 4.6 3.6-5.1 g/dL GLOBULIN 2.4 1.9-3.7 g/dL (calc) ALBUMIN/GLOBULIN RATIO 1.9 1.0-2.5 (calc) BILIRUBIN, TOTAL 0.5 0.2-1.2 mg/dL ALKALINE PHOSPHATASE 96 35-144 U/L AST 16 10-35 U/L ALT 14 9-46 U/L URIC ACID (905) (Not yet rev iewed by provider) Interpretation: Performing Lab:CYNDI [place] [address] Administration Alannah Serrano QiqdkdvTZ264[address] [facility] Dacia Cramer Notes/Report: 0; 0; 0; 0; 0; 0; 0; 0; 0 URIC ACID 5.3 4.0-8.0 mg/dL Therapeutic ta rget for gout patients: <6.0 mg/dL CBC (INCLUDES DIFF/PLT) (719 9) (Not yet reviewed by provider) Interpretation: Performing Lab:CYNDI [place] [address] Administration Alannah Serrano JvzxbrpZX[address] Paulina Cramer Notes/Report: 0; 0; 0; 0; 0; 0; 0; 0; 0 WHITE BLOOD CELL COUNT 6.7 3.8-10.8 Thousand/ uL RED BLOOD CELL COUNT 4.63 4.20-5.80 Million/uL HEMOGLOBIN 13.7 13.2-17.1 g/dL HEMATOCRIT 43.2 38.5-50.0 % MCV 93.3 80.0-100.0 fL MCH 29.6 27.0-33.0 pg MCHC 31.7 32.0-36.0 g/dL For adults, a slight decrease in the calculated MCHC value (in the range of 30 to 32 g/dL) is most likely not clinically significant; however, it should be interpreted with caution in correlation with other red cell parameters and the patient's clinical condition. RDW 13.7 11.0-15.0 % PLATELET COUNT 202 140-400 Thousand/uL MPV 11.9 7.5-12.5 fL ABSOLUTE NEUTROPHILS 4047 3990-3454 cells/uL ABSOLUTE LYMPHOCYTES 0854 016-2693 cells/uL ABSOLUTE MONOCYTES 536 200-950 cells/uL ABSOLUTE EOSINOPHILS 422 15-500 cells/uL ABSOLUTE BASOPHILS 94 0-200 cells/uL NEUTROPHILS 60.4 LYMPHOCYTES 23.9 MONOCYTES 8.0 EOSINOPHILS 6.3 BASOPHILS 1.4 URINALYSIS, COMPLETE W/REFLE X TO CULTURE (3020) (Not yet reviewed by provider) Interpretation: Performing Lab:KS, [employer]-Dihtst49907 Jas [facility], SumispXJ[address] Paulina Cramer MD Notes/Report: 0; 0; 0; 0; 0; 0; 0; 0; 0 COLOR YELLOW YELLOW APPEARANCE CLEAR CLEAR SPECIFIC GRAVITY 1.013 1.001-1.035 PH 6.5 5.0-8.0 GLUCOSE 3+ NEGATIVE BILIRUBIN NEGATIVE NEGATIVE [...] CAST NONE SEEN NONE SEEN /LPF NOTE This urine was analyzed for the presence of WBC, RBC, bacteria, casts, and other formed elements. Only those elements seen were reported. REFLEXIVE URINE CULTURE NO C ULTURE INDICATED SED RATE BY MODIFIED WESTERG EILEEN (809) (Not yet reviewed by provider) Interpretation: Performing Lab:CYNDI [place] [address] Administration Alannah Serrano [address] Notes/Report: 0; 0; 0; 0; 0; 0; 0; 0; 0 SED RATE BY MODIFIED WESTERGREN 5 < OR = 20 mm/h TSH (899) (Not yet reviewed by provider) Interpretation: Performing Lab:CY[facility]I [place] [address] Administration Alannah Serrano [address] Notes/Report: 0; 0; 0; 0; 0; 0; 0; 0; 0 TSH 1.16 0.40-4.50 mIU/L ALBUMIN, RANDOM URINE W/CREA TININE (6734) (Not yet reviewed by provider) Interpretation: Performing Lab:ELLE appssavvy Low-Wmpfcb17313 Tahmina GutierrezaKS[address] Paulina Cramer MD Notes/Report: 0; [...] patient to be within a diagnostic category. PTH, INTACT AND CALCIUM (883 7) (Not yet reviewed by provider) Interpretation: Performing Lab:Puneet ALMEIDA-Xkwlrs93622 Jas Herring XroygzXV12414-6[address] Paulina Cramer MD Notes/Report: 0; 0; 0; [...] 10.0 8.6-10.3 mg/dL CHLORIDE WITH CREATININE, RA NDOM URINE (0400) (Not yet reviewed by provider) Interpretation: Performing Lab:ELLE [employer]-Fhgvla58445 Nav GutierrezIkcxaxOJ64448-54[address] Paulina Cramer MD Notes/Report: 0; 0; 0; 0; 0; 0; 0; 0; 0; 0; 0; 0; 0; 0 CHLORIDE/CREAT RATIO 98 23-275 mmol/g creat CHLORIDE, RANDOM URINE 53 32-290 mmol/L CREATININE, RANDOM URINE 54 20-320 mg/dL COMPREHENSIVE METABOLIC PANE L (01862) (Not yet reviewed by provider) Interpretation: Performing Lab:ELLE [employer]-Blpaft88925 Nav GutierrezEqgdbsIY9[address] Paulina Cramer MD Notes/Report: 0; 0; 0; [...] rev iewed by provider) Interpretation: Performing Lab:Puneet HANNAHca Midwest DivisionDgfjy90282 Administration Alannah Serrano UpseubwLV80[address]23[address] Paulina Cramer Notes/Report: 0; 0; 0; 0; 0; 0; 0; 0; 0; 0; 0; 0; 0; 0 URIC ACID 4.7 4.0-8.0 mg/dL Therapeutic ta rget for gout patients: <6.0 mg/dL POTASSIUM W/O CREATININE, RA NDOM URINE (16603) (Not yet reviewed by provider) Interpretation: Performing Lab:Puneet ALMEIDA-Thomas Pearson[address] Paulina Cramer MD Notes/Report: 0; 0; 0; 0; 0; 0; 0; 0; 0; 0; 0; 0; 0; 0 POTASSIUM, RANDOM URINE 48 12-129 mmol/L PROTEIN, TOTAL W/CREAT, RAND OM URINE (1715) (Not yet reviewed by provider) Interpretation: Performing Lab:Puneet ALMEIDA, TznsmlTU20[address]98[address] Paulina Cramer MD Notes/Report: 0; 0; 0; 0; 0; 0; 0; 0; 0; 0; 0; 0; 0; 0 CREATININE, RANDOM URINE 54 20-320 mg/dL PROTEIN/CREATININE RATIO 296 25-148 mg/g crea t PROTEIN/CREATININE RATIO 0.296 0.025-0 .148 mg/mg creat PROTEIN, TOTAL, RANDOM UR 16 5-25 mg/dL URINALYSIS, COMPLETE W/REFLE X TO CULTURE (3020) (Not yet reviewed by provider) Interpretation: Performing Lab:Puneet ALMEIDAa101Tahmina YeungaKS[address] Paulina Cramer MD Notes/Report: 0; 0; 0; [...] ULTURE INDICATED SED RATE BY MODIFIED EDU ARELLANO (809) (Not yet reviewed by provider) Interpretation: Performing Lab:CYNDI [place] [address] Administration Alannah Serrano [address] Notes/Report: 0; 0; 0; 0; 0; 0; 0; 0; 0; 0; 0; 0; 0; 0 SED RATE BY MODIFIED PRISCILLA 8 < OR = 20 mm/h TSH (899) (Not yet reviewed by provider) Interpretation: Performing Lab:CYNDI [place] [address] Administration Alannah Serrano [address] Notes/Report: 0; 0; 0; 0; 0; 0; 0; 0; 0; 0; 0; 0; 0; 0 TSH 2.26 0.40-4.50 mIU/L VITAMIN D,25-OH,TOTAL,IA (17 306) (Not yet reviewed by provider) Interpretation: Performing Lab:ELLE [employer]-Irsoke25270 Jas Herring, EovozoLU[address] [facility] Nitin Cramer MD Notes/Report: 0; 0; 0; 0; [...] D, (D2,D3), LC/MS/MS is recommended: order code 62484 (patients >2yrs). See Note 1 Note 1 For additional information, please refer to http://[employer]/faq/HUT856 (This link is being provided for informational/ educational purposes only.) VITAMIN D,25-OH,TOTAL,IA (17 306) (Not yet reviewed by provider) Interpretation: Performing Lab:ELLE [employer]-Lqfzij91239 Jas Herring, MoyqsdXK62935-[address] Paulina Cramer MD Notes/Report: 0; 0; 0; 0; 0; 0; 0; 0; 0 VITAMIN D,25-OH,TOTAL,IA 82 30-100 ng/mL Deficiency: <20 ng/mL Insufficiency: 20 - 29 ng/mL Optimal: > or = 30 ng/mL For 25-OH Vitamin D testing on patients on D2-supplementation and patients for whom quantitation of D2 and D3 fractions is required, the QuestAssureD(TM) 25-OH VIT D, (D2,D3), LC/MS/MS is recommended: order code 12046 (patients >2yrs). See Note 1 Note 1 For additional information, please refer to http://[employer]/faq/UFF570 (This link is being provided for informational/ educational purposes only.) Vitamin D Status 25-OH Vitamin D: SODIUM WITH CREATININE, RAND OM URINE (8514) (Not yet reviewed by provider) Interpretation: Performing Lab:ELLE [employer]-Stzzde52489 Jas Herring, IpiateJJ[address] Paulina Cramer MD Notes/Report: 0; 0; 0; 0; 0; 0; 0; 0; 0; 0; 0; 0; 0; 0 SODIUM/CREAT RATIO 115 20-233 mmol/g creat SODIUM, RANDOM URINE 62 28-272 mmol/L CREATININE, RANDOM URINE 54 20-320 mg/dL CBC (INCLUDES DIFF/PLT) (639 9) (Not yet reviewed by provider) Interpretation: Performing Lab:Puneet HANNAHca Midwest DivisionWzejk78606 Administration Alannah Serrano IkwyfrdGA[address] Paulina Cramer Notes/Report: 0; 0; 0; 0; [...] MPV 11.8 7.5-12.5 fL ABSOLUTE NEUTROPHILS 6768 4184-1246 cells/uL ABSOLUTE LYMPHOCYTES 3384 584-8910 cells/uL ABSOLUTE MONOCYTES 567 200-950 cells/uL ABSOLUTE EOSINOPHILS 333 15-500 cells/uL ABSOLUTE BASOPHILS 90 0-200 cells/uL NEUTROPHILS 75.2 LYMPHOCYTES 13.8 MONOCYTES 6.3 EOSINOPHILS 3.7 BASOPHILS 1.0 OSMOLALITY (U) (678) (Not ye t reviewed by provider) Interpretation: Performing Lab:KS, appssavvy Diagnostics-Chtywu74070 Jas Herring, CofucvNS[address] Nichelle-Paige Cramer MD Notes/Report: 0; 0; 0; 0; 0; 0; 0; 0; 0; 0; 0; 0; 0; 0 OSMOLALITY (U) 487 50-1200 mOsm/kg Reason For Referral No Information Medications Medication SIG (Take, Route, Frequency, Duration) Notes Start Date End Date Status Tamsulosin HCl 0.4 MG Take 1 capsule by mouth once daily; Duration: 90 Active Potassium Citrate ER 10 MEQ (1080 MG) TAKE 1 TABLET BY MOUTH THREE TIMES DAILY; Duration: 90 Active Januvia 50 MG Take 1 tablet by once daily; Duration: 90 Active Calcitriol 0.25 MCG Take 1 capsule by mo uth twice daily; Duration: 90 Active Allopurinol 100 MG Take 1 tablet by kavya once daily; Duration: 30 Active Farxiga 10 MG Take 1 tablet by once daily; Duration: 90 Active Vitamin D (Ergocalciferol) 1.25 MG (05644 UT) TAKE 1 CAPSULE BY MOUTH ONCE EVERY MONTH; Duration: 90 Active Problems Problem Type SNOMED Code ICD Code Onset Dates Problem Status W/U Status Risk Notes Problem Anemia (786277668) Anemia, unspecified (D64.9) Active confirmed Problem Diabetic renal disease (075051579) Type 2 diabetes mellitus with diabetic chronic kidney disease (E11.22) Active confirmed Problem Secondary hyperparathyroidism (43501633) Secondary hyperparathyroid ism, not elsewhere classified (E21.1) Active confirmed Problem Hyperuricemia withou t signs of inflammatory arthritis and tophaceous disease (959181688) Hyperuricemia without signs of inflammatory arthritis and tophaceous disease (E79.0) Active confirmed Problem Renal osteodystrophy (27921795) Renal osteodystrophy (N25.0) Active confirmed Problem Proteinuria (00529079) Proteinuria, unspecified (R80.9) Active confirmed Problem Elevated PSA (462386028) Elevated prostate specific antigen (PSA) (R97.20) Active confirmed Problem Essential hypertension (19601155) Essential hypertension (I10) Active confirmed Problem Chronic kidney disease stage 3B (disorder) (653905118) Chronic kidney disease, stage 3b (N18.32) Active confirmed Problem Coronary artery disease (83881257) CAD (coronary artery disease) (I25.10) Active confirmed Encounters Encounter Location Date Provider Diagnosis [facility] [address] [address] 06/05/2024 Adolfo Plascencia Chronic kidney disease, stage 4 (severe) N18.4 ; Chronic kidney disease, stage 3 unspecified N18.30 ; Essential hypertension I10 ; Anemia, unspecified D64.9 ; Renal osteodystrophy N25.0 and Secondary hyperparathyroidism, not elsewhere classified E21.1 [facility] [address] [address] 07/10/2024 Adolfo Plascencia Anemia, unspecified D64.9 ; Stage 3 chronic kidney disease N18.30 ; Renal osteodystrophy N25.0 ; Secondary hyperparathyroidism, not elsewhere classified E21.1 ; Essential hypertension I10 ; Chronic kidney disease, stage 3 unspecified N18.30 and Chronic kidney disease, stage 4 (severe) N18.4 [facility] [address] [facility] [address] [place] [address] 09/11/2024 Adolfo Plascencia [facility] [address] [address] 09/16/2024 Adolfo Plascencia Chronic kidney disease, stage 3 unspecified N18.30 ; Type 2 diabetes mellitus with diabetic chronic kidney disease E11.22 ; Anemia, unspecified D64.9 ; Renal osteodystrophy N25.0 ; Secondary hyperparathyroidism, not elsewhere classified E21.1 and Essential hypertension I10 [facility] [address] [place] [address] 12/03/2024 Adolfo Plascencia Chronic kidney disease, stage 3b N18.32 ; Essential hypertension I10 ; Type 2 diabetes mellitus with diabetic chronic kidney disease E11.22 ; Anemia, unspecified D64.9 ; Renal osteodystrophy N25.0 ; Secondary hyperparathyroidism, not elsewhere classified E21.1 ; Proteinuria, unspecified R80.9 and Hyperuricemia without signs of inflammatory arthritis and tophaceous disease E79.0 [facility] [address] [place] [address] 01/22/2025 Adolfo Plascencia Chronic kidney disease, stage 3b N18.32 ; Essential hypertension I10 ; Type 2 diabetes mellitus with diabetic chronic kidney disease E11.22 ; Anemia, unspecified D64.9 ; Renal osteodystrophy N25.0 ; Secondary hyperparathyroidism, not elsewhere classified E21.1 ; Proteinuria, unspecified R80.9 ; Hyperuricemia without signs of inflammatory arthritis and tophaceous disease E79.0 ; Elevated prostate specific antigen (PSA) R97.20 and CAD (coronary artery disease) I25.10 [facility] [address] [address] 04/09/2025 Adolfo Plascencia Chronic kidney disease, stage 3b N18.32 ; Essential hypertension I10 [...] Treatment Notes Treatment Clinical Notes Section Notes 06/05/2024 Chronic kidney disease, stage 4 (severe) (ICD-10 - N18.4) 06/05/2024 Chronic kidney disease, stage 3 unspecified (ICD-10 - N18.30) 07/10/2024 Anemia, unspecified (ICD-10 - D64.9) 07/10/2024 Stage 3 chronic kidney disease (ICD-10 - N18.30) 09/16/2024 Chronic kidney disease, stage 3 unspecified (ICD-10 - N18.30) 12/03/2024 Chronic kidney disease, stage 3b (ICD-10 - N18.32) 01/22/2025 Chronic kidney disease, stage 3b (ICD-10 - N18.32) 04/09/2025 Chronic kidney disease, stage 3b (ICD-10 - N18.32) 04/09/2025 Essential hypertension (ICD-10 - I10) 01/22/2025 Essential hypertension (ICD-10 - I10) 06/05/2024 Essential hypertension (ICD-10 - I10) 12/03/2024 Essential hypertension (ICD-10 - I10) 09/16/2024 Type 2 diabetes mellitus with diabetic chronic kidney disease (ICD-10 - E11.22) 07/10/2024 Renal osteodystrophy (ICD-10 - N25.0) 06/05/2024 Anemia, unspecified (ICD-10 - D64.9) 09/16/2024 Anemia, unspecified (ICD-10 - D64.9) 07/10/2024 Secondary hyperparathyroidism , not elsewhere classified (ICD-10 - E21.1) 12/03/2024 Type 2 diabetes mellitus with diabetic chronic kidney disease (ICD-10 - E11.22) 01/22/2025 Type 2 diabetes mellitus with diabetic chronic kidney disease (ICD-10 - E11.22) 04/09/2025 Type 2 diabetes mellitus with diabetic chronic kidney disease (ICD-10 - E11.22) 04/09/2025 Anemia, unspecified (ICD-10 - D64.9) 01/22/2025 Anemia, unspecified (ICD-10 - D64.9) 12/03/2024 Anemia, unspecified (ICD-10 - D64.9) 09/16/2024 Renal osteodystrophy (ICD-10 - N25.0) 07/10/2024 Essential hypertension (ICD-10 - I10) 06/05/2024 Renal osteodystrophy (ICD-10 - N25.0) 06/05/2024 Secondary hyperparathyroidism , not elsewhere classified (ICD-10 - E21.1) 07/10/2024 Chronic kidney disease, stage 3 unspecified (ICD-10 - N18.30) 09/16/2024 Secondary hyperparathyroidism , not elsewhere classified (ICD-10 - E21.1) 12/03/2024 Renal osteodystrophy (ICD-10 - N25.0) 01/22/2025 Renal osteodystrophy (ICD-10 - N25.0) 04/09/2025 Renal osteodystrophy (ICD-10 - N25.0) 04/09/2025 Secondary hyperparathyroidism , not elsewhere classified (ICD-10 - E21.1) 01/22/2025 Secondary hyperparathyroidism , not elsewhere classified (ICD-10 - E21.1) 09/16/2024 Essential hypertension (ICD-10 - I10) 12/03/2024 Secondary hyperparathyroidism , not elsewhere classified (ICD-10 - E21.1) 07/10/2024 Chronic kidney disease, stage 4 (severe) (ICD-10 - N18.4) 12/03/2024 Proteinuria, unspecified (ICD-10 - R80.9) 01/22/2025 Proteinuria, unspecified (ICD-10 - R80.9) 04/09/2025 Proteinuria, unspecified (ICD-10 - R80.9) 04/09/2025 Hyperuricemia without signs of inflammatory arthritis and tophaceous disease (ICD-10 - E79.0) 01/22/2025 Hyperuricemia without signs of inflammatory arthritis and tophaceous disease (ICD-10 - E79.0) 12/03/2024 Hyperuricemia without signs of inflammatory arthritis and tophaceous disease (ICD-10 - E79.0) 01/22/2025 Elevated prostate specific antigen (PSA) (ICD-10 - R97.20) 04/09/2025 Elevated prostate specific antigen (PSA) (ICD-10 - R97.20) 04/09/2025 CAD (coronary artery disease) (ICD-10 - I25.10) 01/22/2025 CAD (coronary artery disease) (ICD-10 - I25.10) Plan Of Treatment Pending Test Test Name Order Date ALBUMIN, RANDOM URINE W/CREATININE (6517 ) 12/03/2024 ALBUMIN, RANDOM URINE W/CREATININE (6517 ) 01/22/2025 SODIUM WITH CREATININE, RANDOM URINE (85 14) 01/22/2025 PTH, INTACT AND CALCIUM (8837) PTH, INTACT AND CALCIUM (8837) CHLORIDE WITH CREATININE, RANDOM URINE ( 1645) 01/22/2025 COMPREHENSIVE METABOLIC PANEL (30220) COMPREHENSIVE METABOLIC PANEL (89310) URIC ACID (905) 12/03/2024 URIC ACID (905) 01/22/2025 POTASSIUM W/O CREATININE, RANDOM URINE ( 07172) 01/22/2025 PROTEIN, TOTAL W/CREAT, RANDOM URINE (17 15) 01/22/2025 CBC (INCLUDES DIFF/PLT) (6399) CBC (INCLUDES DIFF/PLT) (6399) URINALYSIS, COMPLETE W/REFLEX TO CULTURE (3020) 01/22/2025 URINALYSIS, COMPLETE W/REFLEX TO CULTURE (3020) 12/03/2024 SED RATE BY MODIFIED WESTERGREN (809) SED RATE BY MODIFIED WESTERGREN (809) OSMOLALITY (U) (678) 01/22/2025 TSH (899) 12/03/2024 TSH (899) 01/22/2025 VITAMIN D,25-OH,TOTAL,IA (52630) 025 VITAMIN D,25-OH,TOTAL,IA (24390) 025 VITAMIN D, 1,25 DIHYDROXY (71888P0) 01/07 VITAMIN D, 1,25 DIHYDROXY (80896S6) 11/08 Next Appt Details Provider Name:Adolfo Plascencia , 07/19/2025 01:00:00 PM, [address], [facility], [place], [address],
--- OUTSIDE RECORDS SUMMARY | 2025-05-18 11:20 | XMS_ITS | Clinical Summary ---
Author Organization [facility] Address [address] [place] [address] Care Team Providers Care Scenic Designer Name Role Phone Evangelina Childers MD Primary Care Provider [phone] Allergies No known active allergies Medications Aspirin 81 MG Cap daily. Active morphine CR (MS CONTIN) 30 MG tablet TAKE 1 TABLET BY MOUTH EVERY 12 HOURS FOR 30 DAYS 2 Active nitroglycerin (NITROSTAT) 0.4 MG SL tablet nitroglycerin 0.4 mg sublingual tablet Active busPIRone (BUSPAR) 15 MG tablet Take 15 mg by mouth 3 (three) times daily as needed. 2 Active SITagliptin (JANUVIA) 50 MG tablet Januvia 50 mg tablet Active naloxone (NARCAN) 4 MG/0.1ML nasal spray naloxone 4 mg/actuation nasal spray Active rosuvastatin (CRESTOR) 10 MG tablet rosuvastatin 10 mg tablet TAKE 1 TABLET BY MOUTH ONCE DAILY 2 Active rOPINIRole (REQUIP) 1 MG tablet Take 1 mg by mouth nightly at bedtime. 2 Active amLODIPine (NORVASC) 5 MG tablet amlodipine 5 mg tablet Active lidocaine (LIDODERM) 5 % APPLY 1 PATCH TOPICALLY ONCE DAILY 2 Active calcitriol (ROCALTROL) 0.25 MCG capsule calcitriol 0.25 mcg capsule TAKE 1 CAPSULE BY MOUTH TWICE DAILY Active potassium citrate CR (UROCIT-K) 10 MEQ (1080 MG) tablet potassium citrate ER 10 mEq (1,080 mg) tablet,extended release TAKE 1 TABLET BY MOUTH THREE TIMES DAILY Active clopidogrel (PLAVIX) 75 MG tablet clopidogrel 75 mg tablet Active Immunizations Immunization Administration Dates Next Due Influenza (FluMist) 07/30/2014 Influenza (Generic) 06/11/2020,08/12/2017 Influenza Adult (Generic) 05/30/2022,,11/14/2019,07/29/2018,01/0 03/2017,06/16/2015 Pneumococcal (Pneumovax 23) 07/29/2018 Pneumococcal (Prevnar 13) 05/30/2022 Shingrix 06/11/2020,11/14/2019 Tdap (Generic) 05/30/2022 Family History Medical History Relation Comments Parkinson's Disease Maternal Aunt Relation Status Comments Maternal Aunt Social History Tobacco Use Types Packs/Day Years Used Date Smoking Tobacco: Former Cigarettes Smokeless Tobacco: Never Tobacco Cessation:Counseling Given: Not Answered Alcohol Use Standard Drinks/Week Comments Not Currently 0 (1 standard drink = 0.6 oz pur e alcohol) PHQ-2 Answer Date Recorded PHQ-2 Score - If the patient scores above 3, please move on to questions 3-9 0 08/14/2022 Sex and Gender Information Value Date Recorded Sex Assigned at Not on file Legal Sex Male 11:41 AM CDT Gender Identity Not on file Sexual Orientation Not on file Last Filed Vital Signs Vital Sign Reading Time Taken Comments Blood Pressure 155/87 08/14/2022 1:41 PM CSO Pulse 72 08/14/2022 1:41 PM CSO Temperature 36.3 C (97.4 F) 08/14/2022 1:16 PM CSO Respiratory Rate - - Oxygen Saturation 97% 08/14/2022 1:16 PM CSO Inhaled Oxygen Concentration - - Weight 72.4 kg (159 lb 9.6 oz) 08/14/2022 1:16 P M CSO Height 167.6 cm (5' 6) 08/14/2022 1:16 PM CSO p t stated Body Mass Index 25.76 08/14/2022 1:16 PM CSO Plan of Treatment Health Maintenance Due Date Last Done Comments Colorectal Cancer Screening Colonoscopy (10 Years) 1955 Hepatitis C 12/05/1973 Annual Medicare Wellness Visit 12/05/2020 COVID-19 Vaccine ( season) 2025 07/03/2022, 07/20/2021, 12/25/2020, Additional history exists Pneumococcal Vaccine: 50+ Years (3 of 3 - PCV20 or PCV21) 05/30/2027 05/30/2022, 07/29/2018 RSV Immunization or 60+ Years (1 - 1-dose 75+ series) 12/05/2030 DTaP, Tdap and Td Vaccines (2 - Td or Tdap) 05/30/2032 05/30/2022 Zoster Vaccines Completed 06/11/2020, 11/14/2019 Meningococcal B Vaccine Aged Out No l onger eligible based on patient's age to complete this topic Meningococcal Vaccine Aged Out No randy ajay eligible based on patient's age to complete this topic RSV Immunizations Under 20 Months Aged Out No longer eligible based on patient's age to complete this topic Insurance [place] [address] [facility] Care Teams Scenic Designer Relationship Specialty Start Date End Date Evangelina Childers MD [address] [place] [id number] PCP - General FAMILY PRACTICE 08/14/22
--- OUTSIDE RECORDS SUMMARY | 2025-05-18 11:21 | XMS_ITS | Clinical Summary ---
Author Organization [facility] Address [address] [place] [address] Care Team Providers Care Managed Care Provider Name Role Phone Willian Shearer MD Primary Care Provider [phone] Source Comments [facility],non-owned Affiliates and Associated Physician Practices is amultiple site organization consisting of ambulatory clinics and hospital sitesin [place], [place], [place] and [place]. This disclosure is being madepursuant to the Care Everywhere program and may not contain all information available regarding this patient. Last updated 18.[facility] Allergies No known active allergies Medications * Be aware that medications may not be up to date on this document. Alwaysverify current medications with the patient. glyburide-metfo rmin (GLUCOVANCE) 5-500 MG tablet 3 times daily. Active simvastatin (ZOCOR) 80 MG tablet once daily. Active niacin CR (NIASPAN) 500 MG tablet once daily. Active linagliptin (TRADJENTA) 5 MG tablet once daily. Active quinapril (ACCUPRIL) 40 MG tablet Take 40 mg by mouth once daily. Active metoprolol tartrate IR (LOPRESSOR) 50 MG tablet Take 50 mg by mouth once daily. Active diclofenac sodium (VOLTAREN) 75 MG tablet Take 75 mg by mouth 2 times daily. Active hydrocodone-geno taminophen (NORCO) 5-325 MG tabletIndicatio ns:Moderate to Moderately Severe Pain Take 1-2 Tabs by mouth every 4 hours as needed. Indications: Moderate to Moderately Severe Pain 40 Tab 1 09/25/201 3 Active methocarbamol (ROBAXIN) 750 MG tablet Take 1 Tab by mouth every 6 hours as needed for Muscle Spasms. 40 Tab 1 3 Active ketorolac (TORADOL) 10 MG tablet Take 1 Tab by mouth every 6 hours. Take 2 pills initially then 1 pill every 6 hours (hold diclofenac while taking toradol) 20 Tab 0 3 Active gabapentin (NEURONTIN) 300 MG capsule Take 1 pill bid x 2 days then increase to 1 pill tid 90 Cap 5 3 Active Acetaminophen-C odeine (TYLENOL/CODEIN E #3) 300-30 MG TABS Take 1 pill q 4-6 hours prn 40 Tab 1 3 Active Active Problems Problem Noted Date Diagnosed Date Follow-up examination, following other surgery 0 10/30/2012 Degeneration of lumbar or lumbosacral interverte bral disc 09/18/2012 Social History Tobacco Use Types Packs/Day Years Used Date Smoking Tobacco: Former Cigarettes Q uit: 09/25/1996 Smokeless Tobacco: Never Alcohol Use Standard Drinks/Week Comments No 0 (1 standard drink = 0.6 oz pur e alcohol) Sex and Gender Information Value Date Recorded Sex Assigned at Not on file Legal Sex Male 6:17 AM [employer]IOR [employer] Gender Identity Not on file Sexual Orientation Not on file Occupation Industry Job Start Date Job End Date DISABLED Not on file Not on file Not on file Last Filed Vital Signs Vital Sign Reading Time Taken Comments Blood Pressure 144/76 09/26/2012 8:43 AM S[employer]IOR PARTNER Pulse 102 09/26/2012 8:43 AM [employer]IOR [employer]NER Temperature 37.2 C (99 F) 09/26/2012 8:43 AM SENIOR PARTNER Respiratory Rate 20 09/26/2012 8:43 AM SENIOR PARTNER Oxygen Saturation 100% 09/26/2012 8:43 AM SENIOR PARTNER Inhaled Oxygen Concentration - - Weight 81.6 kg (180 lb) 09/25/2012 9:23 AM SENIOR PARTNER Height 170.2 cm (5' 7) 09/25/2012 9:23 AM SENIOR PARTNER Body Mass Index 28.19 09/25/2012 9:23 AM SENIOR PARTNER Plan of Treatment Health Maintenance Due Date Last Done Comments COLOGUARD (AGES 45-75) - COL ON CA SCREENING 1955 COLON MONITORING 1955 COLONOSCOPY - COLON CA SCREENING 1955 CT COLONOGRAPHY - COLON CA SCREENING 1955 Colorectal Cancer Screening 1955 FIT - COLON CA SCREENING 1955 FLEX SIG - COLON CA SCREENING 1955 HEPATITIS C SCREENING 12/01/1973 DTAP/TDAP/TD VACCINES (1 - Tdap) 12/05/1974 PNEUMOCOCCAL VACCINE 50+ (1 of 1 - PCV) 12/05/2005 ZOSTER VACCINE (1 of 2) 12/05/2005 AAA SCREENING 12/05/2020 DEPRESSION SCREENING 09/09/2024 COVID-19 VACCINE (1 - 2023-2 5 season) 2025 INFLUENZA VACCINE (#1) 2025 Respiratory Syncytial Virus (RSV) Vaccine Pt: or over 60 yrs (1 - 1-dose 75+ series) 12/05/2030 HEPATITIS B VACCINE Aged Out No longe r eligible based on patient's age to complete this topic HIB VACCINE Aged Out No longer eligi ble based on patient's age to complete this topic HPV VACCINE Aged Out No longer eligi ble based on patient's age to complete this topic MENINGOCOCCAL (Group B) VACC INE SHARED DECISION-MAKING Aged Out No longer eligibl e based on patient's age to complete this topic MENINGOCOCCAL GROUPS A/C/Y/W VACCINE Aged Out No longer eligible b ased on patient's age to complete this topic [place] [address] MEDICARE [facility] Advance Directives * FULL RESUSCITATION (Latest Code Status on File) Date Activated Date Inactivated Comments 09/25/2012 3:00 PM 09/26/2012 2:11 PM Care Teams Managed Care Provider Relationship Specialty Start Date End Date Willian Shearer MD PCP - General Internal Medicine 10/20/14
== END 2025-05-18 10:00 | disposition home or self-care (01) ==
PROVIDERS: PCP Family Medicine; Visit Provider Nurse Practitioner Family
DX: G56.03 Carpal tunnel syndrome, bilateral upper limbs (principal); G56.23 Lesion of ulnar nerve, bilateral upper limbs
CPT/HCPCS: 95886; 95911